=== PATIENT | female | born 1955 | race Two or more races ===

== ENCOUNTER 2022-07-12 11:00 | Outpatient (CLI) | payer OTHER ==
[~2022-07-12] VITALS: Ht 157.5 cm; Wt 77.1 kg
[2022-07-13] MEDS ORDERED: ATEN-60 PO (15:21)
[2022-07-13] MEDS ORDERED: KRIL1CAP11 PO (15:21)
[2022-07-13] MEDS ORDERED: ATOR20TA50 PO (15:21)
[2022-07-13] MEDS ORDERED: PANT40TA2 PO (15:21)
[2022-07-13] MEDS ORDERED: CHOL100047 PO (15:21)
[2022-07-13] MEDS ORDERED: ATE50T PO (15:21)
[2022-07-13] MEDS ORDERED: TRIATAB3 OR (15:21)
== END 2022-07-12 11:54 | disposition home or self-care (01) ==
LOC: LAB 11:00 → EDSTATUS 07-17 11:00
PROVIDERS: ATTEND Orthopaedic Surgery Adult Reconstructive Orthopaedic Surgery
DX: M17.11 Unilateral primary osteoarthritis, right knee (principal)
CPT/HCPCS: 86850; 86900; 86901

== ENCOUNTER 2022-10-30 07:49 | Inpatient (IN) | payer OTHER ==
[~2022-10-30] VITALS: Ht 157.5 cm; Wt 83.2 kg
[2022-10-30] VITALS (11 sets, daily range): BP systolic 95–124; BP diastolic 52–107; PULSE 69–83; RESP 14–18; TEMP 98–98.3; O2SAT 93–99
[~2022-10-30 07:49] MED LIST: ATE50T PO; ATOR20TA50 PO; CHOL100047 PO; TRIATAB3 OR
[2022-10-30] MEDS ORDERED: ONDANSETRON HCL 4 MG/2 ML VIAL ONE (07:58)
[2022-10-30] MEDS ORDERED: PROPOFOL 10 MG/ML 20 ML IV ONE (07:58)
[2022-10-30] MEDS ORDERED: EPINEPHrine HCL 1 MG/1 ML AMP ONE (07:58)
[2022-10-30] MEDS ORDERED: fentaNYL CITRATE 100 MCG/2 ML VL ONE (07:58)
[2022-10-30] MEDS ORDERED: SODIUM CHLORIDE LOCK 20 ML ONE (07:58)
[2022-10-30] MEDS ORDERED: ceFAZolin 1GM/50ML 100 ML IV ONE (07:58)
[2022-10-30] MEDS ORDERED: MIDAZOLAM HCL 2MG/2ML 2ml VIAL (1mg/ml) ONE (07:58)
[2022-10-30] MEDS ORDERED: DexAMETHasone SOD PHOS 10MG/1ML VIAL INJ ONE (07:58)
[2022-10-30] MEDS ORDERED: BUPIVACAINE/DEXTROSE MPF 0.75% 2 ML AMP IT ONE (07:58)
[2022-10-30] MEDS ORDERED: MORPHINE SULF PF 5 MG/10 ML VIAL ONE (07:58)
[2022-10-30] MEDS ORDERED: ceFAZolin 1GM/50ML 50 ML IV ONE (08:06)
[2022-10-30] MEDS ORDERED: CELECOXIB 100 MG CAP PO ONE (08:30)
[2022-10-30] MEDS ORDERED: ACETAMINOPHEN IV 1000 MG/100ML (10MG/ML) IV ONE (08:30)
[2022-10-30] MEDS ORDERED: VANCOMYCIN HCL 1000 MG VL ONE (09:23)
[2022-10-30] MEDS ORDERED: TETRACAINE 1% INJ 2 ML VIAL IJ ONE (09:24)
[2022-10-30] MEDS ORDERED: TRANEXAMIC ACID 20 ML ONE (09:24)
[2022-10-30] MEDS ORDERED: BUPIVACAINE 0.25% INJ 50ML VIAL ONE (09:24)
[2022-10-30] MEDS ORDERED: KETOROLAC TROMETH 30 MG/ML 1ML VIAL ONE (09:34)
[2022-10-30] MEDS: PREGABALIN CAPSULE 75 MG CAP PO SCH ×2 (10:00→22:03)
[2022-10-30] MEDS ORDERED: HYDROmorphone HCL 2 MG/ML VL/or syr IV PRN ×3 (10:30→11:15)
[2022-10-30] MEDS ORDERED: diphenhdrAMINE HCL 50 MG/1 ML VL IV PRN (10:30)
[2022-10-30] MEDS ORDERED: MORPHINE SULFATE INJ 2 MG/ml SYRG IV PRN ×2 (10:30→11:15)
[2022-10-30] MEDS ORDERED: METOCLOPRAMIDE HCL 5MG/ml INJ 2ml VIAL IV PRN (10:30)
[2022-10-30] MEDS ORDERED: NALOXONE HCL 0.4 MG/ML VIAL IV PRN (10:30)
[2022-10-30] MEDS ORDERED: NITROGLYCERIN 0.4 MG SL TAB SL PRN (11:15)
[2022-10-30] MEDS: ceFAZolin 1GM/50ML 50 ML IV SCH (11:15)
[2022-10-30] MEDS ORDERED: ONDANSETRON HCL 4 MG/2 ML VIAL IV PRN (11:15)
[2022-10-30] MEDS: LACTATED RINGER'S 1,000 ML IV SCH ×2 (11:15→17:49)
[2022-10-30] MEDS ORDERED: ACETAMINOPHEN 325 MG TAB PO PRN (11:15)
[2022-10-30] MEDS ORDERED: DexAMETHasone SOD PHOS 4 MG/1ML SDV INJ ONE (12:30)
[2022-10-30] MEDS: SODIUM CHLOR 0.9% PF (SALINE LOCK) 10ML VIAL/SYR IV SCH ×2 (14:00→22:03)
[2022-10-30] MEDS ORDERED: hydrALAZINE HCL 20 MG/ML VL IV PRN (14:15)
[2022-10-30] MEDS: OXYCODONE W/ ACETAMINOPHEN 5/325MG TABLET PO PRN (17:59)
[2022-10-30] MEDS: DOCUSATE SOD 100 MG CAP PO SCH (22:03)
[2022-10-31] VITALS (25 sets, daily range): BP systolic 90–122; BP diastolic 45–61; PULSE 68–81; RESP 14–18; TEMP 97.7–99; O2SAT 91–100
[2022-10-31] MEDS: ceFAZolin 1GM/50ML 50 ML IV SCH ×5 (02:09→14:12)
[2022-10-31] MEDS: SODIUM CHLOR 0.9% PF (SALINE LOCK) 10ML VIAL/SYR IV SCH ×3 (05:55→22:25)
[2022-10-31] MEDS: OXYCODONE W/ ACETAMINOPHEN 5/325MG TABLET PO PRN (07:00)
[2022-10-31] MEDS: HYDROCHLOROTHIAZ PO SCH (08:22)
[2022-10-31] MEDS: TRIAMTERENE PO SCH (08:22)
[2022-10-31] MEDS: PREGABALIN CAPSULE 75 MG CAP PO SCH ×2 (08:39→22:25)
[2022-10-31] MEDS: DOCUSATE SOD 100 MG CAP PO SCH ×2 (08:39→22:25)
[2022-10-31] MEDS: ATORVASTATIN 20 MG TAB PO SCH (08:41)
[2022-10-31] MEDS: ATENOLOL 50 MG TAB PO SCH (08:46)
[2022-10-31] MEDS ORDERED: ENOXAPARIN SOD 40 MG/0.4 ML SYRINGE SC SCH (10:00)
[2022-10-31] MEDS: ENOXAPARIN SOD 40 MG/0.4 ML SYRINGE SC SCH (10:12)
[2022-10-31] MEDS: LACTATED RINGER'S 1,000 ML IV SCH (17:15)
[2022-11-01] MEDS: LACTATED RINGER'S 1,000 ML IV SCH ×2 (03:15→13:15)
[2022-11-01 05:00] VITALS: BP 106/72; PULSE 71; RESP 17; TEMP 98.7; O2SAT 94
[2022-11-01] MEDS: SODIUM CHLOR 0.9% PF (SALINE LOCK) 10ML VIAL/SYR IV SCH ×2 (05:32→14:00)
[2022-11-01 08:00] VITALS: PULSE 62
[2022-11-01 09:00] VITALS: BP 148/71; PULSE 69; RESP 18; TEMP 98; O2SAT 96
[2022-11-01] MEDS: ATENOLOL 50 MG TAB PO SCH (09:37)
[2022-11-01] MEDS: DOCUSATE SOD 100 MG CAP PO SCH (09:37)
[2022-11-01] MEDS: ATORVASTATIN 20 MG TAB PO SCH (09:38)
[2022-11-01] MEDS: PREGABALIN CAPSULE 75 MG CAP PO SCH (09:46)
[2022-11-01] MEDS: ENOXAPARIN SOD 40 MG/0.4 ML SYRINGE SC SCH (09:47)
[2022-11-01] MEDS: TRIAMTERENE PO SCH (09:50)
[2022-11-01] MEDS: HYDROCHLOROTHIAZ PO SCH (09:50)
[2022-11-01 13:00] VITALS: BP 144/71; PULSE 62; RESP 18; TEMP 98.8; O2SAT 96
== END 2022-11-01 16:15 | disposition home health service (06) | DRG 470 ==
LOC: SUR 07:49 → OVERFLOW 11:17 → TELE-WESTW 16:57
PROVIDERS: ADMIT Orthopaedic Surgery Adult Reconstructive Orthopaedic Surgery; ATTEND Orthopaedic Surgery Adult Reconstructive Orthopaedic Surgery
PROC: 0SRC0J9 Replacement of Right Knee Joint with Synthetic Substitute, Cemented, Open Approach (ICD-10-PCS; principal; 2022-10-31)
PROC: 8E0YXBZ Computer Assisted Procedure of Lower Extremity (ICD-10-PCS; 2022-10-31)
DX: M17.11 Unilateral primary osteoarthritis, right knee (principal); I10 Essential (primary) hypertension; F41.9 Anxiety disorder, unspecified; F17.210 Nicotine dependence, cigarettes, uncomplicated
CPT/HCPCS: 36415; 73562; 82565; 85049; 86850; 86900; 86901; 87081; 97110; 97116; 97163; 97530; G0378; J0131; J0171; J0690; J1100; J1885; J2250; J2405; J2704; J3490